=== PATIENT | female | born 1955 | race Caucasian/White ===

== ENCOUNTER 2021-06-14 13:05 | Emergency (ER) | payer OTHER ==
[~2021-06-14 13:05] MED LIST: BACTROBAN OINT22 GM EXT; CLEOCIN HCL300 MG PO; ZITHROMAX250 MG PO
== END 2021-06-14 14:29 | disposition home or self-care (01) ==
LOC: ER1 13:05
DX: R19.7 Diarrhea, unspecified (principal); M19.90 Unspecified osteoarthritis, unspecified site; Z90.49 Acquired absence of other specified parts of digestive tract
CPT/HCPCS: 99283